=== PATIENT | male | born 1990 | race Caucasian/White ===

== ENCOUNTER 2016-05-22 09:50 | Outpatient (CLI) | payer OTHER | END 2016-05-22 09:51 | disposition home or self-care (01) | LOC: NC 09:50 | PROVIDERS: ATTEND Family Medicine | DX: E66.9 Obesity, unspecified (principal); Q87.1 Congenital malformation syndromes predominantly associated with short stature ==

== ENCOUNTER 2016-06-26 15:40 | Outpatient (CLI) | payer OTHER | END 2016-06-26 15:41 | disposition home or self-care (01) | LOC: NC 15:40 | PROVIDERS: ATTEND Family Medicine | DX: E66.9 Obesity, unspecified (principal); Z71.3 Dietary counseling and surveillance ==